=== PATIENT | male | born 1970 | race Caucasian/White ===

== ENCOUNTER 2019-01-17 23:55 | Emergency (ER) | payer OTHER ==
[2019-01-18] MEDS ORDERED: CYCLOBENZAPRINE 10 MG TAB ONE (00:40)
[2019-01-18] MEDS ORDERED: HYDROCODONE/APAP 10/325 TAB ONE (00:41)
--- NOTE | 2019-01-18 01:12 | ER ---
Nurse's Notes [facility] Name: Vel Srivastava Age: 48 yrs Sex: Male : 1970 Arrival Date: 01/18/2019 Time: 00:00 Bed 14 Private MD: Diagnosis: Pain in right thigh Presentation: 01/18 00:09 Presenting complaint: Patient states: R groin pain that radiates to right hip, constant tl2 since . Denies injury, no aggravating or alleviating factors. Denies urinary symptoms. Transition of care: patient was not received from another setting of care. Onset of symptoms was January 14, 2019. Risk Assessment: Do you want to hurt yourself or someone else? Patient reports no desire to harm self or others. Initial Sepsis Screen: Does the patient meet any 2 criteria? No. Patient's initial sepsis screen is negative. Does the patient have a suspected source of infection? No. Patient's initial sepsis screen is negative. Care prior to arrival: None. 00:09 Method Of Arrival: Ambulatory tl2 00:09 Acuity: MARLIN 4 tl2 Triage Assessment: 00:12 General: Appears in no apparent distress. uncomfortable, Behavior is calm, cooperative, tl2 appropriate for age. Pain: Complains of pain in right inguinal area and right iliac crest. Historical: - Allergies: 00:12 PENICILLINS; tl2 - Home Meds: 00:12 None [Active]; tl2 - PMHx: 00:12 None; tl2 - PSHx: 00:12 None; tl2 - Immunization history:: Adult Immunizations up to date. - Social history:: Smoking status: Patient uses tobacco products, smokes one pack cigarettes per day. - Ebola Screening: : No symptoms or risks identified at this time. Screenin:13 Abuse screen: Denies threats or abuse. Nutritional screening: No deficits noted. tl2 Tuberculosis screening: No symptoms or risk factors identified. Fall Risk None identified. Assessment: 00:19 General: Appears in no apparent distress. uncomfortable, Behavior is calm, cooperative, cc3 appropriate for age. Pain: Complains of pain in pelvis and right iliac crest and right inguinal area Quality of pain is described as aching, Pain began 4 days ago. Neuro: Level of Consciousness is awake, alert, obeys commands, Oriented to person, place, time, situation, Appropriate for age. Cardiovascular: Denies chest pain, Capillary refill < 3 seconds in bilateral fingers Patient's skin is warm and dry. Respiratory: Airway is patent Respiratory effort is even, unlabored, Respiratory pattern is regular, symmetrical. GI: Abdomen is round non-distended, Bowel sounds present X 4 quads. Abd is soft and non tender X 4 quads. : No signs and/or symptoms were reported regarding the genitourinary system. EENT: No signs and/or symptoms were reported regarding the EENT system. Derm: Skin is intact, is healthy with good turgor, Skin is pink, warm \T\ dry. normal. Musculoskeletal: Circulation, motion, and sensation intact. Range of motion: intact in all extremities. 01:25 Reassessment: Patient appears in no apparent distress at this time. Patient and/or cc3 family updated on plan of care and expected duration. Pain level reassessed. Patient is alert, oriented x 3, equal unlabored respirations, skin warm/dry/pink. SADA Mckinney discharged the patient home with prescription given. No IV cannula in situ. Patient left ER vitally stable and ambulatory with his . No valuables left in the patient's room. Vital Signs: 00:12 BP 139 / 96; Pulse 76; Resp 18; Temp 98(O); Pulse Ox 98% on R/A; Weight 83.91 kg; tl2 Height 5 ft. 11 in. (180.34 cm); Pain 7/10; 01:18 BP 132 / 88; Pulse 66; Resp 17 S; Pulse Ox 96% on R/A; Pain 2/10; cc3 00:12 Body Mass Index 25.80 (83.91 kg, 180.34 cm) tl2 ED Course: 00:00 Patient arrived in ED. cf2 00:11 Triage completed. tl2 00:12 Arm band placed on right wrist. tl2 00:13 Patient has correct armband on for positive identification. Bed in low position. Call tl2 light in reach. Side rails up X 1. 00:17 Sariah Mckinney FNP-C is PHCP. kb 00:17 Rome Shultz MD is Attending Physician. kb 00:19 Renetta Arzate is Primary Nurse. cc3 00:55 Pelvis XRAY In Process Unspecified. EDMS 00:55 Hip Right 2 View XRAY In Process Unspecified. EDMS 01:25 No provider procedures requiring assistance completed. Patient did not have IV access cc3 during this emergency room visit. Administered Medications: 00:40 Drug: [place] 10 mg-325 mg 1 tabs {Note: RASS 0.} Route: PO; cc3 01:25 Follow up: Response: No adverse reaction; Pain is decreased cc3 00:40 Drug: Flexeril 10 mg Route: PO; cc3 01:25 Follow up: Response: No adverse reaction; Pain is decreased cc3 Outcome: 01:12 Discharge ordered by . nanda 01:25 Discharged to home ambulatory, with family. cc3 01:25 Condition: stable 01:25 Discharge instructions given to patient, Instructed on discharge instructions, follow up and referral plans. medication usage, Demonstrated understanding of instructions, follow-up care, medications, Prescriptions given X 2. 01:28 Patient left the ED. cc3 Signatures: Dispatcher [employer] EDHI Sariah Mckinney, SCOURER-C SCOURER-Jeanie Walker RN RN tl2 Renetta Arzate cc3 Justen Woodall cf2
--- NOTE | 2019-01-18 01:13 | EDPHYS ---
Physician Documentation [facility] Name: Vel Srivastava Age: 48 yrs Sex: Male : 1970 Arrival Date: 01/18/2019 Time: 00:00 Bed 14 Private MD: ED Physician Rome Shultz HPI: 01/18 00:43 This 48 yrs old Male presents to ER via Ambulatory with complaints of Hip kb Pain, Leg Pain, Groin Pain. 00:43 The patient presents with pain, that is acute. The complaints affect the right iliac kb crest and right inguinal area. Context: The problem was sustained at home, resulted from an unknown cause, the patient can fully bear weight, the patient is able to ambulate. Onset: The symptoms/episode began/occurred 4 day(s) ago. Modifying factors: The symptoms are alleviated by nothing. the symptoms are aggravated by nothing. Associated signs and symptoms: Pertinent positives: numbness, tingling. Treatment prior to arrival includes: no previous treatment. Severity of symptoms: At their worst the symptoms were moderate, in the emergency department the symptoms are unchanged. The patient has not experienced similar symptoms in the past. The patient has not recently seen a physician. Pt reports constant pain that is a burning sensation with intermittent numbness to proximal thigh, below inguinal canal. Nothing makes pain better or worse. Woke up with the pain on and it has gotten progressively worse since then. 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 Historical: - Allergies: 00:12 PENICILLINS; tl2 - Home Meds: 00:12 None [Active]; tl2 - PMHx: 00:12 None; tl2 - PSHx: 00:12 None; tl2 - Immunization history:: Adult Immunizations up to date. - Social history:: Smoking status: Patient uses tobacco products, smokes one pack cigarettes per day. - Ebola Screening: : No symptoms or risks identified at this time. ROS: 00:41 Constitutional: Negative for fever, chills, and weight loss, Cardiovascular: Negative kb for chest pain, palpitations, and edema, Respiratory: Negative for shortness of breath, cough, wheezing, and pleuritic chest pain, Abdomen/GI: Negative for abdominal pain, nausea, vomiting, diarrhea, and constipation, Back: Negative for injury and pain, Skin: Negative for injury, rash, and discoloration, Neuro: Negative for headache, weakness, numbness, tingling, and seizure. 00:41 MS/extremity: Positive for pain, proximal thigh pain. Exam: 00:43 Constitutional: This is a well developed, well nourished patient who is awake, alert, kb and in no acute distress. Head/Face: Normocephalic, atraumatic. ENT: Nares patent. No nasal discharge, no septal abnormalities noted. Tympanic membranes are normal and external auditory canals are clear. Oropharynx with no redness, swelling, or masses, exudates, or evidence of obstruction, uvula midline. Mucous membranes moist. Neck: Trachea midline, no thyromegaly or masses palpated, and no cervical lymphadenopathy. Supple, full range of motion without nuchal rigidity, or vertebral point tenderness. No Meningismus. Chest/axilla: Normal chest wall appearance and motion. Nontender with no deformity. No lesions are appreciated. Cardiovascular: Regular rate and rhythm with a normal S1 and S2. No gallops, murmurs, or rubs. Normal PMI, no JVD. No pulse deficits. Respiratory: Lungs have equal breath sounds bilaterally, clear to auscultation and percussion. No rales, rhonchi or wheezes noted. No increased work of breathing, no retractions or nasal flaring. Abdomen/GI: Soft, non-tender, with normal bowel sounds. No distension or tympany. No guarding or rebound. No evidence of tenderness throughout. Skin: Warm, dry with normal turgor. Normal color with no rashes, no lesions, and no evidence of cellulitis. MS/ Extremity: Pulses equal, no cyanosis. Neurovascular intact. Full, normal range of motion. Neuro: Awake and alert, GCS 15, oriented to person, place, time, and situation. Cranial nerves II-XII grossly intact. Motor strength 5/5 in all extremities. Sensory grossly intact. Cerebellar exam normal. Normal gait. Vital Signs: 00:12 BP 139 / 96; Pulse 76; Resp 18; Temp 98(O); Pulse Ox 98% on R/A; Weight 83.91 kg; tl2 Height 5 ft. 11 in. (180.34 cm); Pain 7/10; 01:18 BP 132 / 88; Pulse 66; Resp 17 S; Pulse Ox 96% on R/A; Pain 2/10; cc3 00:12 Body Mass Index 25.80 (83.91 kg, 180.34 cm) tl2 MDM: 00:17 Patient medically screened. kb 00:35 Data reviewed: vital signs, nurses notes. Data interpreted: Pulse oximetry: on room air kb is 98 %. Interpretation: normal. Counseling: I had a detailed discussion with the patient and/or guardian regarding: the historical points, exam findings, and any diagnostic results supporting the discharge/admit diagnosis, radiology results, the need for outpatient follow up, a family practitioner, to return to the emergency department if symptoms worsen or persist or if there are any questions or concerns that arise at home. 01/18 00:26 Order name: Pelvis XRAY kb 01/18 00:26 Order name: Hip Right 2 View XRAY kb Administered Medications: 00:40 Drug: [place] 10 mg-325 mg 1 tabs {Note: RASS 0.} Route: PO; cc3 01:25 Follow up: Response: No adverse reaction; Pain is decreased cc3 00:40 Drug: Flexeril 10 mg Route: PO; cc3 01:25 Follow up: Response: No adverse reaction; Pain is decreased cc3 Disposition: 04:59 Co-signature as Attending Physician, Rome Shultz MD I agree with the assessment and tw4 plan of care. Disposition: 01/18/19 01:12 Discharged to Home. Impression: Pain in right thigh. - Condition is Stable. - Discharge Instructions: Musculoskeletal Pain. - Prescriptions for Cyclobenzaprine 10 mg Oral Tablet - take 1 tablet by ORAL route every 8 hours As needed; 21 tablet. Diclofenac Sodium 75 mg Oral Tablet, Delayed Release (E.C.) - take 1 tablet by ORAL route 2 times per day As needed; 30 tablet. - Medication Reconciliation Form, Thank You Letter, Antibiotic Education, Prescription Opioid Use form. - Follow up: Emergency Department; When: As needed; Reason: Worsening of condition. Follow up: Private Physician; When: 2 - 3 days; Reason: Recheck today's complaints, Continuance of care, Re-evaluation by your physician. Signatures: Dispatcher [employer] Sariah Marie, ARLET-C ARLET-Jeanie Walker RN RN tl2 Rome Shultz MD MD tw4 Renetta Arzate cc3 Corrections: (The following items were deleted from the chart) 01:28 01:12 01/18/2019 01:12 Discharged to Home. Impression: Pain in right thigh. Condition cc3 is Stable. Forms are Medication Reconciliation Form, Thank You Letter, Antibiotic Education, Prescription Opioid Use. Follow up: Emergency Department; When: As needed; Reason: Worsening of condition. Follow up: Private Physician; When: 2 - 3 days; Reason: Recheck today's complaints, Continuance of care, Re-evaluation by your physician. kb
[2019-01-18 01:57] VITALS: BP 139/96; TEMP 98; O2SAT 98
--- NOTE | 2019-01-18 08:51 | RAD REPORT ---
EXAM DESCRIPTION: RAD - Hip Right 2 View - 01/18/2019 12:53 am CLINICAL HISTORY: Groin and right hip pain COMPARISON: None. FINDINGS: AP and frog-leg views of the right hip were obtained. There is no fracture or dislocation . No acute or destructive bony process seen. IMPRESSION: Negative right hip examination for acute findings.
--- NOTE | 2019-01-18 08:51 | RAD REPORT ---
EXAM DESCRIPTION: RAD - Pelvis - 01/18/2019 12:53 am CLINICAL HISTORY: Pelvis and right groin pain COMPARISON: None. TECHNIQUE: AP imaging of the pelvis was obtained. FINDINGS: No fracture of the bony pelvis. No fracture, dislocation or other acute hip joint finding. No significant SI joint findings. No soft tissue abnormality. IMPRESSION: Negative pelvis for acute or significant findings.
== END 2019-01-18 01:28 | disposition home or self-care (01) ==
LOC: ER 23:55
DX: M79.651 Pain in right thigh (principal); F17.210 Nicotine dependence, cigarettes, uncomplicated; Z88.0 Allergy status to penicillin
CPT/HCPCS: 72170; 99283